=== PATIENT | male | born 1930 | race Caucasian/White ===

== ENCOUNTER 2017-09-20 12:32 | Inpatient (IN) | payer MEDICARE ==
--- NOTE | ~2017-09-20 | HEMODYNAMI ---
PATIENT:DINA DEAN MEDICAL RECORD: [id number] : 31 LOCATION:[place] [address] ADMISSION DATE: 09/20/17 Generatedon:09/21/201716:44 Patient name: DINA DEAN Patient #: [id number] SSN: : 1930 Date of study: 09/21/2017 Page: Of Hemodynamic Procedure Report Patient Data Patient Demographics Procedure consent was obtained First Name: DINA Gender: Male Last Name: DIANNE : 1930 [facility] Initial: S Age: 87 year(s) Patient #: [id number] Race: Unknown Additional ID: [id number] Contact details [address]: [address] [place] [address] State: [place] City: [place] Zip code: [address] Admission Admission Data Admission Date: 09/20/2017 Admission Time: 15:54 Room #: [facility] Procedure Procedure Types Cath Procedure Diagnostic Procedure PPM/ICD PPM Dual Implant Procedure Description Procedure Date Procedure Date: 09/21/2017 Procedure Start Time: 16:17 Procedure End Time: 16:44 Procedure Staff Name Function Kobi Honeycutt MD Performing Physician Hema Alvarez MD Assisting physician Hiwot Gramajo RT Scrub Sonny Srinivasan RN Nurse Jesus Manzo RT Monitor Procedure Data Cath Procedure Fluoroscopy Diagnostic fluoroscopy Total fluoroscopy Time: 0.9 time: 0.9 min min Diagnostic fluoroscopy Total fluoroscopy dose: dose: 14.12 mGy 14.12 mGy Estimated blood loss: 20 ml Procedure Medications Medication Administration Route Dosage Ancef (1Gm/50ml NS) I.V.P.B 1 g Ancef Irrigation Topical 1 g (1gm/500ml NS) 0.9% NaCl I.V. 100 ml/hr Fentanyl I.V. 50 mcg Versed I.V. 1 mg Fentanyl I.V. 50 mcg Versed I.V. 1 mg Hemodynamics Rest Heart Rate: 37 (bpm) Snapshots Pre Cath Intra NCS Post Cath Vital Signs Time Heart Resp SPO2 etCO2 NIBP (mmHg) Rhythm Pain Sedation Rate (ipm) (%) (mmHg) Status Level (bpm) 16:12:14 43 19 94 0 240/145(197) NSR 0 (11) 10(A) , No pain 16:17:19 36 16 92 0 253/98(200) NSR 0 (11) 10(A) , No pain 16:22:24 40 18 92 0 198/72(176) NSR 0 (11) 10(A) , No pain 16:28:10 76 21 94 0 163/122(139) NSR 0 (11) 10(A) , No pain 16:32:43 78 19 97 0 153/85(144) NSR 0 (11) 10(A) , No pain 16:38:23 75 16 95 0 198/109(167) NSR 0 (11) 10(A) , No pain 16:43:05 80 17 95 0 213/104(184) NSR 0 (11) 10(A) , No pain Medications Time Medication Route Dose Verified Delivered Reason Notes Effective ness by by 16:04:48 Ancef I.V.P.B 1 g Kobi Sonny Per (1Gm/50ml St. Anjel Srinivasan RN physician NS) 16:04:55 Ancef Topical 1 g Kobi Darlingy Per Irrigation St. Anjel Srinivasan RN physician (1gm/500ml NS) 16:05:07 0.9% NaCl I.V. 100 Kobi Darlingy Per ml/hr St. Anjel Srinivasan RN physician 16:17:07 Fentanyl I.V. [address] [facility] Anjel Srinivasan RN sedation 16:17:24 Versed I.V. 1 mg K[address] Dennis for [facility] Anjel Srinivasan RN sedation 16:20:53 Fentanyl I.V. [address] [facility] Anjel Srinivasan RN sedation 16:20:55 Versed I.V. 1 [address] [facility] Anjel Srinivasan RN sedation Procedure Log Time Note 15:27:16 Sonny Srinivasan RN sent for patient. Start room use. 15:27:17 Time tracking: Regular hours 15:27:21 Plan of Care:Hemodynamics will remain stable., Cardiac rhythm will remain stable., Comfort level will be maintained., Respiratory function will remain adequate., Patient/ family verbilizes understanding of procedure., Procedure tolerated without complication., Recovers from procedure without complications.. 16:03:42 Vital chart was started 16:04:48 Ancef (1Gm/50ml NS) 1 g I.V.P.B was administered by Sonny Srinivasan RN; Per physician; 16:04:55 Ancef Irrigation (1gm/500ml NS) 1 g Topical was administered by Sonny Srinivasan RN; Per physician; 16:05:07 0.9% NaCl 100 ml/hr I.V. was administered by Sonny Srinivasan RN; Per physician; 16:08:50 Diagnostic Cath Status : Elective 16:09:11 Patient received from PCU to CCL 3 Alert and oriented. Tansferred to table in Supine position. 16:10:00 Warm blankets applied, and luke hugger turned on for patient comfort. 16:10:05 Correct patient and procedure confirmed by team. 16:10:14 Signed procedure consent form obtained from patient. 16:14:32 ECG and BP/O2 sat monitors applied to patient. 16:14:33 Baseline sample Acquired. 16:14:38 Rhythm: sinus bradycardia 16:14:41 Full Disclosure recording started 16:15:02 H&P Date Dictated: 09/20/2017 Within 30 days and on chart.. 16:15:04 Pre-procedure instructions explained to patient. 16:15:05 Pre-op teaching completed and patient verbalized understanding. 16:15:07 Family unavailable. 16:15:09 Patient NPO since Breakfast. 16:15:18 Is patient on blood thinner?No 16:15:24 Patient diabetic? No. 16:15:29 ----Pre-sedation anethsthesia assessment.---- 16:15:33 Previous problem with sedation/anesthesia? No ? 16:15:38 Snore? Yes 16:15:40 Sleep apnea? No 16:15:41 Deviated septum? No 16:15:42 Opens mouth fully? Yes 16:15:43 Sticks out tongue? Yes 16:15:50 Airway obstruction? Yes COPD 16:15:54 Dentures? No ? 16:16:17 IV patent on arrival in right antecubital with 0.9% NaCl at [facility]. 16:16:23 Left chest area was prepped with chlora-prep and draped in sterile fashion 16:16:27 Alarms reviewed by R. N. 16:16:27 Sharps counted by scrub and verified by R.N. 16:16:28 Physician arrived 16:16:29 --------ALL STOP TIME OUT------ 16:16:30 Final Timeout: patient, procedure, and site verified with staff and physician. All members of the team are in agreement. 16:16:34 Left chest site verified by team. 16:16:42 Physical assessment completed. ASA score P 2 - A patient with mild systemic disease as per Hema Alvarez MD. 16:16:47 Sedation plan: IV Moderate Sedation Versed, Fentanyl 16:17:07 Fentanyl 50 mcg I.V. was administered by Sonny Srinivasan RN; for sedation; 16:17:24 Versed 1 mg I.V. was administered by Sonny Srinivasan RN; for sedation; 16:17:47 Procedure started. 16:17:55 [employer] practice representative YVAN LLOYD present for procedure. 16:18:30 Pre sharps counted by scrub and verified by RN: Sutures: 7 Sponges: 5 Stick needles: 2 Skin needles: 2 Blade: 1 Cautery: 1 16:19:00 Grounding pad site Left thigh. 16:19:23 Lidocaine 1% w/epi and Bupivacaine 0.5% to left subclavicular area by Hema Alvarez MD. 16:20:52 Incision made to left subclavicular area. 16:20:53 Fentanyl 50 mcg I.V. was administered by Sonny Srinivasan RN; for sedation; 16:20:55 Versed 1 mg I.V. was administered by Sonny Srinivasan RN; for sedation; 16:22:00 Medtronic Adapta PPM Dual Generator [id number] opened to sterile field. 16:22:01 Medtronic 4574-45 PPM Lead opened to sterile field. 16:22:02 Medtronic 4074-52 PPM Lead opened to sterile field. 16:24:11 2.0 Ticron Multipack opened to sterile field. 16:24:12 3.0 Vicryl Single Pack [id number] opened to sterile field. 16:24:12 5.0 Monocryl PS3 [id number] opened to sterile field. 16:24:22 7Fr Safe Sheath opened to sterile field. 16:24:23 7Fr Safe Sheath opened to sterile field. 16:24:28 Generator pocket made/opened. 16:24:41 Left subclavian vein accessed with 7Fr Peel Away Sheath. 16:25:46 Ventricular lead inserted and advanced. 16:25:50 Peel-a-way sheath was split and removed. 16:25:54 Left subclavian vein accessed with 7Fr Peel Away Sheath. 16:26:31 Atrial lead inserted and advanced. 16:26:32 Peel-a-way sheath was split and removed. 16:27:55 Ventricular lead positioned. 16:27:59 Ventricular lead tested. 16:28:46 Atrial lead positioned. 16:28:49 Atrial lead positioned. 16:29:37 Ventricular lead attachment was completed with 2-0 ticron. 16:33:19 Atrial lead attachment was completed with 2-0 ticron. 16:33:24 PPM Dual was attached to lead(s) and inserted into pocket. 16:33:31 Device pocket was irrigated with Ancef. 16:33:54 Generator was sutured in place with 2-0 ticron. 16:36:17 Subcutaneous closure was completed with 3-0 vicryl. 16:40:43 Skin closure was completed with 5-0 monocryl. 16:41:13 Post sharps counted by scrub and verified by RN: Sutures: 7 Sponges: 5 Stick needles: 2 Skin needles: 2 Blade: 1 Cautery: 1 16:41:18 Procedure ended.(Physican Out) 16:41:32 Fluoroscopy time 00.90 minutes. 16:41:38 Fluoroscopy dose: 14.12 mGy 16:41:38 Flurop Dose total: 14.12 16:41:44 Insertion/operative site no bleeding no hematoma. 16:41:50 Post-op/insertion site Left Chest area dressed using a Mepilex dressing. 16:42:03 Post left subclavian vein:stable 16:42:11 Post-procedure physical assessment completed. ASA score P 2 - A patient with mild systemic disease as per Hema Alvarez MD. 16:42:16 Post procedure rhythm: paced 16:42:24 Estimated blood loss: 20 ml 16:42:25 Post procedure instruction explained to patient.Patient verbalizes understanding. 16:42:26 Patient needs reinforcement of post procedure teaching. 16:43:00 Procedure and supply charges have been captured, reviewed, submitted and are correct. 16:44:02 Vital chart was stopped 16:44:03 See physician's report for complete and final results. 16:44:05 Report given to PCU. 16:44:09 Procedure ended. 16:44:09 Full Disclosure recording stopped 16:44:18 Patient transfered to PCU with Bed. 16:44:23 End room use (Document Last) Device Usage Item Name Manufacture Quantity Catalog Hospital Part Current Minimal Lo t# / Number Charge Number Stock Stock Serial# Code Medtronic Medtronic 1 [id number] 5 Adapta PPM Dual Generator [id number] Medtronic Medtronic 1 4574-45 [id number] 757604 5 4574-45 PPM Lead Medtronic Medtronic 1 4074-52 114760 261275 5 4074-52 PPM Lead 2.0 Ethicon 7 [id number] 895250 25498 852148 5 Ticron Multipack 3.0 Ethicon 1 [id number] 686030 503283 931590 5 Vicryl Single Pack [id number] 5.0 Ethicon 1 [id number] 854254 583656 5 Monocryl PS3 [id number] 7Fr Safe Microtek 2 SU7 468510 567798 673680 10 [employer] Signature Audit [place] Stage Time Signature Unsigned Intra-Procedure 09/21/2017 Jesus Manzo 4:44:43 PM RT(R) (CV) Signatures Monitor : Jesus Manzo RT Signature : Date : Time : [facility] [address] [facility] [place] [address]
[2017-09-20 13:23] LABS: BASOPHILS 0.4 % (0-2); EOSINOPHILS 0.5 % (0-7); HEMATOCRIT 43.4 % (42.0-54.0); HEMOGLOBIN 14.1 g/dL (13.5-17.5); IMMATURE GRANULOCYTES 0.7 % (0-5); LYMPHOCYTES 17.1 % (15-50); MCHC 32.5 g/dL (31.0-37.0); MCV 89.1 fL (80.0-100.0); MEAN PLATELET VOLUME 11.3 fL (7.4-10.4); MONOCYTES 9.7 % (2-11); NEUTROPHILS 71.6 % (40-80); RBC 4.87 10x6/uL (4.20-6.10); RDW 14.2 % (11.5-14.5); WBC 8.5 10x3/uL (4.8-10.8)
[2017-09-20 13:35] LABS: APTT 24.5 SECONDS (22.8-39.4); INR 1.02 (0.85-1.17); PROTIME 13.2 SECONDS (11.6-15.0)
[2017-09-20 13:50] LABS: PLATELET ESTIMATE NORMAL
[2017-09-20 13:56] LABS: PLATELET COUNT 179 10x3/uL (130-400)
[2017-09-20 14:04] LABS: APPEARANCE CLEAR (CLEAR); BILIRUBIN NEGATIVE (NEGATIVE); COLOR YELLOW (YELLOW); GLUCOSE NEGATIVE (NEGATIVE); KETONE NEGATIVE (NEGATIVE); NITRITE NEGATIVE (NEGATIVE); PROTEIN 1+ mg/dL (NEGATIVE); UROBILINOGEN NORMAL (NORMAL)
[2017-09-20 14:07] LABS: BACTERIA FEW /hpf (NONE SEEN); EPITHELIAL CELLS 0-5 /hpf (0-5)
[2017-09-20 14:46] LABS: ALBUMIN 3.3 g/dL (3.4-5.0); ANION GAP 15.7 mmol/L (8-16); BILIRUBIN - TOTAL 0.79 mg/dL (0.2-1.3); CALCIUM 9.2 mg/dL (8.5-10.1); CREATININE - SERUM 2.3 mg/dL (0.6-1.3); POTASSIUM - SERUM 5.7 mmol/L (3.5-5.1); PROTEIN - SERUM 6.7 g/dL (6.4-8.2)
[2017-09-20 15:02] LABS: TROPONIN-I 0.093 ng/mL (0.000-0.060)
[2017-09-20] MEDS ORDERED: LEVOTHYROXINE75 MCG PO (18:05)
[2017-09-20] MEDS ORDERED: VITAMIN D31000 UNIT PO (18:06)
[2017-09-20] MEDS ORDERED: SINGULAIR10 MG PO (18:07)
[2017-09-20] MEDS ORDERED: CATAPRES TTS-20.2 MG TD (18:07)
--- NOTE | 2017-09-20 18:15 | NUR ---
PATIENT TO ROOM FROM ER, PATIENT IS ALERT AND ORIENTED AT THIS TIME. PATIENT HAS A R AC THAT IS INFUSING WITH NS AT 50ML/HR. PATIENT IS BEING AN ADMITTED WITH A CVA. PATIENT STATES HE HAS HAD A HEADACHE, AND LOSS OF VISION IN L EYE. WILL MONITOR PATIENT. PATIENT DENIES ANY NEEDS. CPOC
--- NOTE | 2017-09-20 18:38 | NUR ---
PAINT CREW SUPERVISOR INFORMED ME THAT PATIENT IS 2ND DEGREE BETTYE, CALLED ER TO SEE IF PATIENT HAS BEEN RUNNING THIS, WILL PAGE DR. AGUIRRE
--- NOTE | 2017-09-20 18:42 | NUR ---
DR MENDEZ AWARE OF RHYTHMN
[2017-09-20 22:06] VITALS: BP 104/55
[2017-09-21 01:54] VITALS: BP 145/73
--- NOTE | 2017-09-21 05:17 | NUR ---
CALL LIGHT IN REACH, WILL CONTINUE WITH PLAN OF CARE.
[2017-09-21 06:17] VITALS: BP 212/81
--- NOTE | 2017-09-21 07:58 | NUR ---
AM ROUNDS - PT IS IN BED AND APPEARS TO BE SLEEPING WITH EQUAL AND NON LABORED BREATHING. MONITOR SHOWING 2ND DEGREE KHADRA SOSA, HR 39. DR MENDEZ NOTIFIED. IV TO RIGHT AC, NS AT 50CC/HR. BED AT LOWEST POSITION. CALL HEMPHILL IN USE/REACH. SIDE RAILS UP X2. WILL CONTINUE TO MONITOR
[2017-09-21 08:00] VITALS: BP 102/74
[2017-09-21 09:51] LABS: LDL-HDL RATIO 2.6 ratio (1.5-3.5)
[2017-09-21 10:04] LABS: BASOPHILS 0.4 % (0-2); EOSINOPHILS 0.9 % (0-7); IMMATURE GRANULOCYTES 0.4 % (0-5); LYMPHOCYTES 16.3 % (15-50); MCHC 32.5 g/dL (31.0-37.0); MCV 89.1 fL (80.0-100.0); MEAN PLATELET VOLUME 12.7 fL (7.4-10.4); MONOCYTES 9.1 % (2-11); NEUTROPHILS 72.9 % (40-80); PLATELET COUNT 189 10x3/uL (130-400); RBC 4.49 10x6/uL (4.20-6.10); RDW 14.1 % (11.5-14.5); WBC 8.2 10x3/uL (4.8-10.8)
[2017-09-21 10:15] LABS: ALBUMIN 3.2 g/dL (3.4-5.0); BILIRUBIN - TOTAL 1.01 mg/dL (0.2-1.3); CALCIUM 9.5 mg/dL (8.5-10.1); CARBON DIOXIDE 24.9 mmol/L (21.0-32.0); CREATININE - SERUM 2.5 mg/dL (0.6-1.3); PROTEIN - SERUM 6.8 g/dL (6.4-8.2)
[2017-09-21 10:18] LABS: ANION GAP 12.6 mmol/L (8-16); POTASSIUM - SERUM 4.5 mmol/L (3.5-5.1)
[2017-09-21 12:00] VITALS: BP 150/90
--- NOTE | 2017-09-21 13:52 | NUR ---
CONCENTS FOR PROCEDURE ARE SIGNED AND PLACED IN CHART. WILL CONTINUE TO MONITOR
--- NOTE | 2017-09-21 15:15 | NUR ---
PT IS UP AD MARY. REFUSES SCD. SCDS ARE PLACED IN ROOM.
--- NOTE | 2017-09-21 19:15 | NUR ---
OT NOTE: PT COMPLETED SIMPLE HYGIENE AND GROOMING TASKS WITH JANE Thomas THANK YOU, SHANICE CARBALLO/Zechariah
--- NOTE | 2017-09-21 19:20 | NUR ---
ALERT/AWAKE TALKING ON PHONE. IV IN L HAND INTACT WITH NS INFUSING AT 75ML/HR. DENIES ANY NEEDS. BED IS LOW WITH SR UP X2. HAS CALL LIGHT IN REACH.
[2017-09-21 20:00] VITALS: BP 174/105
--- NOTE | 2017-09-21 20:10 | NUR ---
RETURNING TO BED FROM BATHROOM. REQUESTED ANOTHER GOWN AND BLANKET. SPLITTING MACHINE OPERATOR'S PRESENT IN ROOM TO DO A CXR.
--- NOTE | 2017-09-21 20:15 | NUR ---
B/P 174/105. APRESOLINE IV HAD BEEN GIVEN AT 1814. WILL CONT TO MONITOR.
--- NOTE | 2017-09-21 20:50 | NUR ---
ADMIN SCHED MED. DENIES ANY NEEDS.
--- NOTE | 2017-09-21 22:20 | NUR ---
REQUESTED CRACKERS AND MILK. CHECKED B/P AT 162/96 MANUALLY.
[2017-09-22] VITALS: BP 187/91
--- NOTE | 2017-09-22 03:12 | NUR ---
ADMIN ZOFRAN IV FOR C/O NAUSEA.
[2017-09-22 04:00] VITALS: BP 145/87
[2017-09-22 06:28] LABS: BASOPHILS 0.3 % (0-2); EOSINOPHILS 0.1 % (0-7); HEMATOCRIT 42.2 % (42.0-54.0); HEMOGLOBIN 13.7 g/dL (13.5-17.5); IMMATURE GRANULOCYTES 0.4 % (0-5); LYMPHOCYTES 11.7 % (15-50); MCH 28.7 pg (26.0-34.0); MCHC 32.5 g/dL (31.0-37.0); MCV 88.5 fL (80.0-100.0); MEAN PLATELET VOLUME 12.3 fL (7.4-10.4); MONOCYTES 10.5 % (2-11); PLATELET COUNT 194 10x3/uL (130-400); RBC 4.77 10x6/uL (4.20-6.10); RDW 14.2 % (11.5-14.5)
[2017-09-22 06:29] LABS: WBC 11.5 10x3/uL (4.8-10.8)
[2017-09-22 06:58] LABS: ALBUMIN 3.3 g/dL (3.4-5.0); ANION GAP 14.9 mmol/L (8-16); BILIRUBIN - TOTAL 0.9 mg/dL (0.2-1.3); CALCIUM 9.4 mg/dL (8.5-10.1); CARBON DIOXIDE 22.6 mmol/L (21.0-32.0); CREATININE - SERUM 2.2 mg/dL (0.6-1.3); POTASSIUM - SERUM 4.5 mmol/L (3.5-5.1); PROTEIN - SERUM 6.8 g/dL (6.4-8.2)
--- NOTE | 2017-09-22 08:05 | NUR ---
AM ROUNDS - PT IS IN BED AND APPEARS TO BE SLEEPING AT THIS TIME WITH EQUAL AND NON LABORED BREATHING. IV TO RIGHT AC, SL. MONITOR SHOWING PACE AT 60. BED AT LOEST POSITON. CALL HEMPHILL IN USE/REACH. SIDE RAILS UP X2. WILL CONTINUE TO MONITOR
[2017-09-22 08:56] VITALS: BP 167/80
[2017-09-22 11:39] VITALS: BP 180/95
--- NOTE | 2017-09-22 13:01 | NUR ---
OT NOTE: UPON ENTERING ROOM, PT IS YELLING AT THERAPIST ABOUT GOING HOME. EXPLAINED TO PT THAT THIS THERAPIST DID NOT HAVE ANY CONTROL OVER THAT. QUESTIONED PT TO WHETHER HE WAS SAFE ENOUGH TO RETURN HOME. HIS VISION REMAINS POOR AND IS STILL UNABLE TO SEE OBJECTS CLOSE OR FAR AWAY. HE IS GETTING OUT OF BED AND ABLE TO AMB TO BATHROOM WITHOUT ASSIST, BUT DONT FEEL HE WOULD BE SAFE HOME ALONE. AFTER EXTENSIVE QUESTIONING, PT STATED THAT HIS SISTER WAS COMING TO STAY WITH HIM. I FEEL HE SHOULD RECEIVE MORE THERAPY, HOWEVER, HE ONLY WANTS TO GO HOME
[2017-09-22 15:42] VITALS: BP 114/51
--- NOTE | 2017-09-22 16:56 | EC ---
PATIENT:DINA DEAN DATE OF SERVICE: 09/20/17 SEX: M MEDICAL RECORD: [id number] DATE OF : [birth year] LOCATION:[address] AGE OF PATIENT: 87 ADMISSION DATE: 09/20/17 REFERRING PHYSICIAN: INTERPRETING PHYSICIAN: BILL QUEVEDO MD ECHOCARDIOGRAM REPORT ECHO CHARGES 4 ECHO COMPLETE CLINICAL DIAGNOSIS: CVA/CAD/BRADYCARDIA HX OF CAD/CABG ECHOCARDIOGRAPHIC MEASUREMENTS (adult normal given) AC root (d.<3.7cm) 3.2 cm LV Septum d (<1.2 cm> 1.0 cm Valve Excursion 1.1 cm LV Septum (systole) 1.4 cm Left Atria (s.<4.0cm> 4.1 cm LVPW d(<1.2cm) 1.1 cm RV (d.<2.3cm) 5.1 cm LVPW (sytole) 1.6 cm LV diastole(<5.6CM) 5.4 cm MV E-F(>70mm/sec) cm LV systole 3.3 cm LVOT Diameter 1.3 cm MV exc.(>10mm) 1.4 cm Est.ejection fraction (50-75%) % Pericardial Effusion N DOPPLER: LVIT cm/sec A 49.0 cm/sec E 77.0 cm/sec LA cm/sec RVSP 65 mmHg LVOT 128 cm/sec AOP1/2T m/s Asc. Ao 182 cm/sec RVOT 75 cm/sec RA cm/sec PA 147 cm/sec AV Gradient Peak 13.23mmHg AV Mean 7.39 mmHg AV Area 1.0 cm MV Gradient Peak 5.72 mmHg MV Mean 1.62 mmHg MV Area cm COMMENTS: [employer] Maintenance Worker: Ronak VAIL Casket Liner: 2 Dr. Gautam TAPE# PACS DATE OF SERVICE: 09/21/2017 Echocardiogram FINDINGS: 1. Left ventricular chamber size is within normal limits. Left ventricular systolic function is normal. Overall ejection fraction estimated at 55%. 2. Left atrium is enlarged at 4.1 cm. Right atrium and right ventricular chamber sizes are moderately dilated. 3. 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 Valve area calculates to 1.0 cm-squared, gradient of 30 mm across the valve. The remaining valvular structures have normal structure and motion. 4. Doppler interrogation elsewise reveals ooxp-gl-tkqtpeqk mitral regurgitation, moderate tricuspid regurgitation, no other valvular insufficiency or stenosis; however, pulmonary systolic pressure is elevated, estimated 65 mmHg. 5. No evidence of pericardial effusion or left ventricular thrombus. TRANSINT:[id number] Voice Confirmation ID: [id number] DOCUMENT ID: [id number] BILL QUEVEDO MD at 1656 CC: [id number] DICTATION DATE: 09/21/17 1326 HOME IMPROVEMENT ADVISOR: 09/21/17 1348 ADM IN [facility] [address] [place] [id number]
--- NOTE | 2017-09-22 19:30 | NUR ---
ALERT/AWAKE DENIES ANY NEEDS. IV IN R AC INTACT SL. L CHEST PACEMAKER SITE DRSG C/D/I. REPLACED SLING TO LEFT ARM. DID NOT EAT ANY OF HIS DINNER TRAY. STATED HE DID NOT KNOW IT WAS THERE. HOSPITAL ORDERLY WARMED UP TRAY. ORIENTED TO CALL LIGHT, PLACED BY HIS RIGHT HAND. STATED HIS VISION HAS BEEN BLURRY.
[2017-09-22 21:06] VITALS: BP 209/92
[2017-09-23 00:34] VITALS: BP 92/48
[2017-09-23 04:00] VITALS: BP 143/83
--- NOTE | 2017-09-23 07:00 | NUR ---
RECEIVED REPORT. ASSUMED CARE OF PATIENT. CALL LIGHT WITHIN REACH. NO DISTRESS. RESP EVEN AND UNLABORED.
[2017-09-23 07:49] LABS: BASOPHILS 0.3 % (0-2); EOSINOPHILS 0.4 % (0-7); HEMATOCRIT 43.6 % (42.0-54.0); HEMOGLOBIN 14.3 g/dL (13.5-17.5); IMMATURE GRANULOCYTES 0.3 % (0-5); LYMPHOCYTES 13.5 % (15-50); MCH 29.1 pg (26.0-34.0); MCHC 32.8 g/dL (31.0-37.0); MCV 88.8 fL (80.0-100.0); MEAN PLATELET VOLUME 12.6 fL (7.4-10.4); MONOCYTES 12.1 % (2-11); NEUTROPHILS 73.4 % (40-80); PLATELET COUNT 177 10x3/uL (130-400); RBC 4.91 10x6/uL (4.20-6.10); RDW 14.5 % (11.5-14.5); WBC 11.5 10x3/uL (4.8-10.8)
[2017-09-23 08:00] VITALS: BP 191/95
[2017-09-23 08:02] LABS: ALBUMIN 3.1 g/dL (3.4-5.0); ANION GAP 16.3 mmol/L (8-16); BILIRUBIN - TOTAL 1.18 mg/dL (0.2-1.3); CALCIUM 9.2 mg/dL (8.5-10.1); CARBON DIOXIDE 19.9 mmol/L (21.0-32.0); CREATININE - SERUM 2.2 mg/dL (0.6-1.3); POTASSIUM - SERUM 4.2 mmol/L (3.5-5.1)
--- NOTE | 2017-09-23 08:44 | NUR ---
IV APRESOLINE ADMINISTERED FOR SBP 191.
--- NOTE | 2017-09-23 14:37 | NUR ---
PT HERE TO AMBULATE PATIENT. NO DISTRESS.
[2017-09-23 16:00] VITALS: BP 160/85
--- NOTE | 2017-09-23 16:24 | NUR ---
RETURNED CALL TO PATIENTS SISTER. EXPLAINED AGAIN TO PATIENTS SISTER THAT PATIENT IS NOT BEING DISCHARGED TODAY. PATIENT SISTER STATES THAT PATIENT JUST WANTS TO COME HOME, DOESN'T CARE ABOUT TREATMENT ANYMORE. INFORMED HER THAT THIS BUFFING WHEEL FORMER AUTOMATIC WILL RELAY THIS INFORMATION TO PHYSICIAN.
[2017-09-23 17:10] VITALS: BP 160/85; BMI 21.3
--- NOTE | 2017-09-23 18:07 | NUR ---
RESTING IN BED WITH EYES CLOSED, EASILY AROUSED. EXTRA BLANKET ADDED TO PATIENT BED. HEAT ADJUSTED IN ROOM. CALL LIGHT WITHIN REACH. DENIES NEEDS AT THIS TIME.
--- NOTE | 2017-09-23 19:25 | NUR ---
ALERT/AWAKE DENIES ANY NEEDS. IV IN R AC INTACT SL. TELEMETRY SHOWS 62 PACED. LEFT ARM OUT OF SLING, REPLACED IT. DRSG OVER PACEMAKER INCISION SITE C/D/I. NO NEEDS VOICED. ORIENTED TO CALL LIGHT.
[2017-09-23 21:24] VITALS: BP 142/70
--- NOTE | 2017-09-23 21:55 | NUR ---
ADMIN SCHED MED WITH SIPS OF WATER. DENIES ANY OTHER NEEDS.
[2017-09-24 00:55] VITALS: BP 131/78
--- NOTE | 2017-09-24 01:30 | NUR ---
RESTING WITH EYES CLOSED. RR EVEN U/L. NO S/S OF DISCOMFORT. CL IN REACH.
[2017-09-24 04:41] VITALS: BP 135/75
[2017-09-24 05:05] LABS: BASOPHILS 0.2 % (0-2); EOSINOPHILS 1.2 % (0-7); HEMATOCRIT 43.6 % (42.0-54.0); HEMOGLOBIN 14.2 g/dL (13.5-17.5); IMMATURE GRANULOCYTES 0.6 % (0-5); LYMPHOCYTES 18.8 % (15-50); MCH 28.9 pg (26.0-34.0); MCHC 32.6 g/dL (31.0-37.0); MCV 88.8 fL (80.0-100.0); MEAN PLATELET VOLUME 12.1 fL (7.4-10.4); MONOCYTES 13.8 % (2-11); NEUTROPHILS 65.4 % (40-80); PLATELET COUNT 188 10x3/uL (130-400); RBC 4.91 10x6/uL (4.20-6.10); RDW 14.4 % (11.5-14.5); WBC 9.7 10x3/uL (4.8-10.8)
--- NOTE | 2017-09-24 05:09 | NUR ---
PT AWAKENED WITH SOME CONFUSION. HAD TO EXPLAIN TO HIM WHY HE HAD ON SO MANY "WIRES", THAT IT WAS TELEMETRY. SPENT TIME ANSWERING PATIENT'S QUESTIONS.
[2017-09-24 05:17] LABS: ALBUMIN 3.1 g/dL (3.4-5.0); ANION GAP 14.3 mmol/L (8-16); BILIRUBIN - TOTAL 1.19 mg/dL (0.2-1.3); CALCIUM 9.2 mg/dL (8.5-10.1); CARBON DIOXIDE 23.1 mmol/L (21.0-32.0); CREATININE - SERUM 2.5 mg/dL (0.6-1.3); POTASSIUM - SERUM 4.4 mmol/L (3.5-5.1); PROTEIN - SERUM 6.8 g/dL (6.4-8.2)
--- NOTE | 2017-09-24 07:57 | NUR ---
ASSESSMENT DONE. DENIES NEEDS.
[2017-09-24 08:00] VITALS: BP 202/85
--- NOTE | 2017-09-24 09:39 | NUR ---
NO NEEDS OR C/O VOICED AT THIS TIME. CALL LIGHT IN REACH. WILL MONITOR.
--- NOTE | 2017-09-24 12:00 | NUR ---
PT SISTER HERE, PT IS GOING AMA. HE DOESNT WANT TO BE HERE, AND IS GOING HOME. EVELIN.KONG LUNAPED.
--- NOTE | 2017-09-24 13:42 | NUR ---
DI, KONG BEEPED, AGAIN
--- NOTE | 2017-09-24 13:43 | NUR ---
DR RASHEED NOTIFYED OF AMA
--- NOTE | 2017-09-24 13:44 | NUR ---
WENDY PERRY NOTIFYED OF AMA
--- NOTE | 2017-09-24 13:57 | NUR ---
ER ADMIT NOTIFYED TO BRING PT WALLET UP
--- NOTE | 2017-09-24 14:08 | NUR ---
AMA WITH SISTER
--- NOTE | 2017-09-24 18:49 | NUR ---
Patient Name: DINA DEAN Admission Status: ER Accout number: [id number] Admission Date: 09-20-2017 : 1930 Admission Diagnosis: Attending: NARDA MEJIAS Current LOS: 4 Anticipated DC Date: 09-24-2017 Planned Disposition: Home Primary Insurance: MEDICARE A & B Discharge Planning Comments: Late Entry 1200 noon Patient' sister, Brandon Rodrigues, and Sarath, her son, came to supervisor opening and picking patient. The patient wants to leave AMA. The sister had a living will, not completed by patient. She wants a notary. CM advised no one is available on the weekend. She will complete at home and CM advised that she give it to DR Arciniega, patient's PCP. Patient lives in a 2 bedroom house next to his sister. He has been in frequent communication with her over the weekend. She had called frequently to speak with the staff. She states she is a retired nurse and will take care of her brother. She has her son to help her. They declined home health or hospice services as patient states he is not accepting any more medical care. The primary nurse. Erin, was at the desk. She called DR Mejias to advise him of the patient and family decision. PCP- DR Mills DME- commode, wheelchair, oxygen, patient lift Pharmacy- [facility] or [facility] if necessary Patient has one small step tp enter his home. The sister has a ramp at her home if he needs to stay with her. She has a 4 bedroom house. Sarath will provide transportation to home and Ms Rodrigues also drives. The patient has belongings in the hospital safe. Kwasi advised the primary nurse, Erin. Patient was discharged to home AMA with his family. Armorer Technician: Eli Sanabria
--- NOTE | 2017-10-02 13:13 | OP ---
PATIENT NAME: DINA WATTS MEDICAL RECORD: [id number] :31 LOCATION:D.M2 D.2 ADMISSION DATE:09/20/17 SURGEON: JOSE MAYFIELD MD DATE OF OPERATION: 09/21/2017 PROCEDURE: Lead portion of permanent pacemaker placement. SURGEON: Hema Alvarez MD INDICATION: Complete heart block. DESCRIPTION OF PROCEDURE: After left subclavian was cannulated via modified Seldinger technique via Dr. Alvarez, first under fluoroscopic guidance, I placed the RV lead in RV apex without difficulty. Next, again under fluoroscopic guidance, I placed the right atrial lead in the right atrial appendage without difficulty. After adequate P waves and thresholds were obtained, the leads were attached to appropriate poles on the generator and the pocket was closed via Dr. Alvarez. IMPRESSION: Successful lead portion of permanent pacemaker placement on Dina Watts. COMPLICATIONS: None. ESTIMATED BLOOD LOSS: Minimal. DISPOSITION: To the floor, stable. TRANSINT:[id number] Voice Confirmation ID: [id number] DOCUMENT ID: [id number] JOSE MAYFIELD MD at 1313 CC: [id number] DICTATION DATE: 09/21/17 1634 VOLTAGE TESTER: 09/21/172038 DIS IN 09/24/17 [facility] [address] [place] [address]
--- NOTE | 2017-10-03 11:14 | OP ---
PATIENT NAME: DINA DEAN MEDICAL RECORD: [id number] :[birth year] LOCATION:D.M2 D.2112 ADMISSION DATE:09/20/17 SURGEON: HEMA GAMEZ MD DATE OF OPERATION: 09/21/2017 PREOPERATIVE DIAGNOSES: 1. Sick sinus syndrome. 2. Bradycardia. 3. Hypertension. POSTOPERATIVE DIAGNOSES: 1. Sick sinus syndrome. 2. Bradycardia. 3. Hypertension. PROCEDURE: 1. Left subclavian vein dual lead pacemaker placement. 2. Fluoroscopic interpretation. SURGEON: Hema Gamez MD. COSURGEON: Kobi Honeycutt MD. REPORT OF OPERATION: The patient's left chest was prepped and draped in sterile fashion. A 25mL 1% lidocaine with epinephrine was infused into the tissue of the left chest. A transverse incision was made on the left superior lateral aspect of the chest and a subcutaneous pouch was made over the pectoral fascia. A needle was used to cannulate the left subclavian vein. The guidewire was advanced with ease. We did this one other time giving 2 separate sticks. Fluoro was used to note that the wires were in good position in the venous system. The dilator trocar devices were placed over the wire and the wire and dilator were removed. The leads were advanced through the trocars. At this point, Dr. Honeycutt positioned the lead in good position in the atrium and ventricle. Once these were noted to be functioning appropriately, then the leads were sutured into place with 0 Ti-Cron. The leads were then affixed to the pacemaker and the pacemaker was placed in the subcutaneous pouch. This was sutured into place with 0 Ti-Cron. We irrigated out the wound with antibiotic solution and then closed the subcutaneous tissue with interrupted 3-0 Vicryl. The skin was closed with running subcutaneous 5-0 Monocryl and dressed appropriately. COMPLICATIONS: None. CONDITION: Stable. ANESTHESIA: Local MAC. BLOOD LOSS: Minimal. TRANSINT:[id number] Voice Confirmation ID: [id number] DOCUMENT ID: [id number] OPERATIVE REPORT [id number] DINA DEAN HEMA GAMEZ MD at 1114 CC: [id number] DICTATION DATE: 09/21/171642 BROWNING PROCESSOR: 09/21/171953 DIS IN 09/24/17 [facility] [address] [facility] [address]
--- NOTE | 2017-10-24 10:49 | DS ---
PATIENT:DINA DEAN :32 MEDICAL RECORD: [id number] DISCHARGE SUMMARY ADMISSION DATE: 09/20/17 DISCHARGE DATE: 09/24/17 This is a discharge dated 09/24/2017 from the inpatient hospital. DISCHARGE DIAGNOSES: 1. Hypertension. 2. Hypertensive urgency. 3. Elevated troponin. 4. Hyperkalemia. 5. Blurred vision. 6. 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 7. 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 8. Bilateral carotid artery stenosis. 9. Coronary artery disease. 10. Renal insufficiency. CONSULTS ON THIS HOSPITALIZATION: 1. Neurology with Neal Lomeli MD 2. Cardiology with Yobany Gautam MD 3. Cardiovascular surgery with Elijah Obando MD PROCEDURES ON THIS HOSPITALIZATION: 1. Carotid Doppler with 70% stenosis on the left and 50% on the right. 2. MRI of the brain with right [employer] infarct. 3. Bedside swallow eval with no signs and symptoms of aspiration. 4. Permanent pacemaker placement on 09/[address] Honeycutt and Dr. Alvarez. HOSPITAL COURSE: Full H&P is located elsewhere on the chart on this 87-year-old male who was admitted for evaluation of blurred vision. He had elevated troponins and bradycardia by telemetry. Cardiology was consulted. He was seen by Dr. Gautam. Dr. Lomeli was consulted for neurology evaluation. Imaging was consistent with right [employer] infarct. Electrolytes were managed by protocol. He had a carotid Doppler, revealing bilateral carotid artery stenosis. Permanent pacemaker was placed by Dr. Honeycutt and Dr. Alvarez for second- and third-degree AV block. He was hemodynamically stable postprocedure. He was seen by Dr. Obando for evaluation of carotid artery stenosis with plans to evaluate again as an outpatient. He was seen by physical therapy for ambulation and strengthening during his hospital stay and he was seen by speech therapy with bedside swallow eval with no signs and symptoms of aspiration. The patient elected to leave the hospital against medical advice accompanied by family members. He was discharged on 09/24/2017. DISCHARGE MEDICATIONS: As per discharge medication reconciliation. DISCHARGE DISPOSITION: The patient is discharged home. He will continue his current diet and level of activity. He will follow up with primary care and specialist as directed. At least 30 minutes was spent in this discharge activity. TRANSINT:[id number] Voice Confirmation ID: [id number] DOCUMENT ID: [id number] DISCHARGE SUMMARY REPORT [id number] DINA DEAN Dictated By: RAYMOND DEVLIN I have interviewed/examined the above patient and agree with these documented findings. 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
== END 2017-09-24 14:08 | disposition left against medical advice (07) | DRG 242 ==
LOC: D.ER 12:32 → D.M2 15:54
PROVIDERS: Emergency Medicine; Internal Medicine Interventional Cardiology; Nurse Practitioner Family; ADMIT Family Medicine
PROC: 02H63JZ Insertion of Pacemaker Lead into Right Atrium, Percutaneous Approach (ICD-10-PCS; 2017-09-21)
PROC: 02HK3JZ Insertion of Pacemaker Lead into Right Ventricle, Percutaneous Approach (ICD-10-PCS; 2017-09-21)
PROC: 0JH606Z Insertion of Pacemaker, Dual Chamber into Chest Subcutaneous Tissue and Fascia, Open Approach (ICD-10-PCS; principal; 2017-09-21 15:00)
DX: I49.5 Sick sinus syndrome (principal); I63.531 Cerebral infarction due to unspecified occlusion or stenosis of right posterior cerebral artery; I16.0 Hypertensive urgency; I65.23 Occlusion and stenosis of bilateral carotid arteries; I25.10 Atherosclerotic heart disease of native coronary artery without angina pectoris; R40.2363 Coma scale, best motor response, obeys commands, at hospital admission; R40.2143 Coma scale, eyes open, spontaneous, at hospital admission; R40.2253 Coma scale, best verbal response, oriented, at hospital admission; Z95.1 Presence of aortocoronary bypass graft; Z87.891 Personal history of nicotine dependence

== ENCOUNTER → 2017-09-28 13:44 | Outpatient (CLI) | payer MEDICARE ==
[2017-09-23 17:10] VITALS: BMI 21.3
[~2017-09-28 13:44] MED LIST: CATAPRES TTS-20.2 MG TD; LEVOTHYROXINE75 MCG PO; SINGULAIR10 MG PO; VITAMIN D31000 UNIT PO
[2017-09-28 14:47] LABS: ANION GAP 15.3 mmol/L (8-16); CALCIUM 9.9 mg/dL (8.5-10.1); CARBON DIOXIDE 23.7 mmol/L (21.0-32.0); CREATININE - SERUM 2.2 mg/dL (0.6-1.3)
== END | disposition home or self-care (01) ==
LOC: D.LAB 09-27 11:45
PROVIDERS: Internal Medicine Cardiovascular Disease
DX: N28.9 Disorder of kidney and ureter, unspecified (principal)